=== PATIENT | female | born 2000 | race Caucasian/White ===

== ENCOUNTER 2020-05-18 08:00 | Outpatient (CLI) | payer SELFPAY | END 2020-05-18 23:59 | disposition home or self-care (01) | LOC: LAB.S 08:00 | PROVIDERS: ATTEND Nurse Practitioner | DX: M25.421 Effusion, right elbow (principal) | CPT/HCPCS: 81599; 87070; 87075; 87205 ==

== ENCOUNTER 2022-09-14 16:49 | Emergency (ER) | payer OTHER ==
[2022-09-14 17:20] LABS: BASOPHILS % (AUTO) 0.5 %; EOSINOPHILS # (AUTO) 0.1 10^3/uL (0.0-0.7); EOSINOPHILS % (AUTO) 0.8 %; HCT - HEMATOCRIT 38.3 % (37.0-47.0); HGB - HEMOGLOBIN 13.1 g/dL (12.0-16.0); LYMPHOCYTES % (AUTO) 26.7 %; MEAN CORPUSCULAR HEMOGLOBIN 30.5 pg (27.0-31.0); MEAN CORPUSCULAR HGB CONC 34.2 g/dL (32.0-36.0); MEAN CORPUSCULAR VOLUME 89.1 fL (81.0-99.0); MEAN PLATELET VOLUME 9.1 fL (7.9-10.8); MONOCYTES # (AUTO) 0.6 10^3/uL (0.0-1.0); MONOCYTES % (AUTO) 7.6 %; NEUTROPHILS # (AUTO) 4.7 10^3/uL (1.5-6.6); PLT - PLATELET COUNT 255 10^3/uL (130-450); RED CELL DISTRIBUTION WIDTH 12.6 % (12.0-15.0); WHITE BLOOD COUNT 7.3 x10^3/uL (4.8-10.8)
[2022-09-14 18:16] LABS: BILIRUBIN,URINE NEGATIVE (NEGATIVE); GLUCOSE, URINE (UA) NEGATIVE (NEGATIVE); KETONES,URINE (UA) NEGATIVE (NEGATIVE); LEUKOCYTE ESTERASE, URINE NEGATIVE (NEGATIVE); NITRITE,URINE NEGATIVE (NEGATIVE); OCCULT BLOOD,URINE NEGATIVE (NEGATIVE); PH,URINE 6.5 PH (5.0-7.5); PROTEIN,URINE NEGATIVE (NEGATIVE); UROBILINOGEN,URINE 0.2 (NORMAL) E.U./dL (NORMAL)
[2022-09-14 18:20] LABS: CLARITY,URINE CLEAR (CLEAR)
--- NOTE | 2022-09-14 19:33 | Ultrasound Report ---
PROCEDURE: OB First Trimester w/TV INDICATIONS: 6.5 weeks preg/pain/spotting OUTSIDE/PRIOR DATING DATA: Last menstrual period (LMP): 08/02/2022. LMP-based estimated date of delivery (WILLIE): 05/09/2023. TECHNIQUE: Real-time scanning was performed of the fetus and maternal pelvic organs, with image documentation. Endovaginal scanning was also performed to better visualize the fetus and maternal ovaries. COMPARISON: None FINDINGS: Embryo: Mean gestational sac diameter is 0.84 cm corresponding with 5 weeks 4 days. Heart rate: Not identified Measurement variability in dating: +/- 4 weeks by LMP, +/- 7 days by mean sac diameter (use before 6 weeks gestation if crown-rump length not able to be measured), +/- 5 days by crown-rump length (6-12 weeks gestation). Maternal organs: Ovaries demonstrate a right corpus luteal cyst. IMPRESSION: Intrauterine is seen with a gestational sac measuring 5 weeks 4 days, however there is no f etal pole and no heart rate. These findings are concerning for a nonviable . Recommend follow-up ultrasound. Reviewed by: Ollie Downing on 09/14/2022 7:32 PM PDT Approved by: Ollie Downing on 09/14/2022 7:32 PM PDT Station ID: [id number]
--- NOTE | 2022-09-14 19:40 | ED Physician Documentation ---
PD HPI FEMALE - Stated complaint Stated Complaint: SPOTTING - Chief complaint Chief Complaint: Abd Pain - History obtained from History obtained from: Patient - Additional information Additional information: Patient is a 22-year-old female with no prior pregnancies presenting for evaluation of vaginal bleeding and lower abdominal cramping that is been present for 2 days. She reports that the spotting seems heavier today but is not as much as a period. She is with her last menstrual cycle in July and believes she is approximately 6 weeks .Her OB is in [place] but she borrero s not yet had any visits.She denies concerns for sexually transmitted infections. Review of Systems Constitutional: denies: Fever Cardiac: denies: Chest pain / pressure Respiratory: denies: Dyspnea GI: denies: Vomiting : reports: Discharge (White), Vaginal bleeding. denies: Dysuria Musculoskeletal: denies: Back pain Neurologic: denies: Headache PD PAST MEDICAL HISTORY - Past Medical History Past Medical History: No Cardiovascular: None Respiratory: None Neuro: None Endocrine/Autoimmune: None GI: None CA[employer]: None : None HEENT: None Psych: None Musculoskeletal: None Derm: None Other Past Medical History: CLEFT PALATE/SURGERY.. - Past Surgical History Past Surgical History: Yes General: Cholecystectomy, Other - Present Medications Home Medications: Ambulatory Orders Medication Instructions Recorded Confirmed metroNIDAZOLE [Flagyl] 500 mg PO BID 7 Days #14 tablet 09/14/22 - Allergies Allergies/Adverse Reactions: Allergies Allergy/AdvReac Type Severity Reaction Status Date / Time No Known Drug Allergies Allergy Verified 09/14/22 16:54 - Social History Does the pt smoke?: No Smoking Status: Never smoker Does the pt drink ETOH?: No Does the pt have substance abuse?: No - Immunizations Immunizations are current?: Yes - POLST Patient has POLST: No PD ED PE NORMAL - General General: Alert and oriented X 3, No acute distress, Well developed/nourished - HEENT HEENT: Atraumatic - Neck Neck: Supple, no meningeal sign - Cardiac Cardiac: RRR, No murmur - Respiratory Respiratory: No respiratory distress, Clear bilaterally - Abdomen Abdomen: Soft, Non distended - Female Female : Pt declined - Derm Derm: Warm and dry - Extremities Extremities: No edema - Neuro Neuro: Normal speech Results - Vitals Vitals: Vital Signs - 24 hr 09/14/22 09/14/2209/14/23 16:52 17:22 19:54 Temperature 36.1 C L Heart Rate 70 81 75 Respiratory 16 18 15 Rate Blood Pressure 111/73 106/69 98/61 O2 Saturation 100 100 100 Oxygen O2 Source Room air - Labs Labs: Laboratory Tests 09/14/22 09/14/22 09/14/22 17:11 17:11 17:11 WBC 7.3 RBC 4.30 Hgb 13.1 Hct 38.3 MCV 89.1 MCH 30.5 MCHC 34.2 RDW 12.6 Plt Count 255 MPV 9.1 Neut # (Auto) 4.7 Lymph # (Auto) 2.0 Bryan # (Auto) 0.6 Eos # (Auto) 0.1 Baso # (Auto) 0.0 Absolute Nucleated RBC 0.00 Nucleated RBC % 0.0 HCG, Quant 74140.00 Urine Color Urine Clarity Urine pH Ur Specific [place] Urine Protein Urine Glucose (UA) Urine Ketones Urine Occult Blood Urine Nitrite Urine Bilirubin Urine Urobilinogen Ur Leukocyte Esterase Ur Microscopic Review Urine Culture Comments C. glabrata (PCR) C. krusei (PCR) Lucie species DNA T. vaginalis (PCR) Bact Vaginosis (PCR) Blood Type B POSITIVE Blood Type Recheck 09/14/22 09/14/22 09/14/22 18:00 18:04 18:21 WBC RBC Hgb Hct MCV MCH MCHC RDW Plt Count MPV Neut # (Auto) Lymph # (Auto) Bryan # (Auto) Eos # (Auto) Baso # (Auto) Absolute Nucleated RBC Nucleated RBC % HCG, Quant Urine Color STRAW Urine Clarity CLEAR Urine pH 6.5 Ur Specific [place] <=1.005 Urine Protein NEGATIVE Urine Glucose (UA) NEGATIVE Urine Ketones NEGATIVE Urine Occult Blood NEGATIVE Urine Nitrite NEGATIVE Urine Bilirubin NEGATIVE Urine Urobilinogen 0.2 (NORMAL) Ur Leukocyte Esterase NEGATIVE Ur Microscopic Review NOT INDICATED Urine Culture Comments NOT INDICATED C. glabrata (PCR) NEGATIVE C. krusei (PCR) NEGATIVE Lucie species DNA NEGATIVE T. vaginalis (PCR) NEGATIVE Bact Vaginosis (PCR) POSITIVE A Blood Type Blood Type Recheck B POSITIVE PD Medical Decision Making - ED course Complexity details: reviewed results, re-evaluated patient, d/w patient, d/w family (mother) ED course: Patient is a 22-year-old female with Vaginal bleeding in the setting of early . She has not yet had any care.Abdominal exam is benign. Patient declined pelvic exam and perform self swabs.CBC, hCG quant and blood type are reviewed. hCG quant is 10,000. Blood type is B+.Pelvic ultrasound was obtained which I reviewed and demonstrates signs of an IUP but there is no pole or cardiac activity. I did review these findings with the patient and family member at bedside and expressed that it could be related to early versus miscarriage Patient needs close follow-up with her OB.After discharge her vaginosis panel was positive for bacterial vaginosis. She had reported having white vaginal discharge so we will treat. Patient aware of need to picking supervisor antibiotics tomorrow at [facility] pharmacy and denies any further questions. Her urine is negative for infection. She is counseled on strict return precautions for worsening pain or bleeding. Departure - Departure Disposition: 01 Home, Self Care Clinical Impression: Threatened miscarriage, Bacterial vaginosis in Condition: Stable Instructions: ED Miscarriage Poss Prescriptions: metroNIDAZOLE [Flagyl] 500 mg PO BID 7 Days #14 tablet Comments: Your blood type is B+. Your hormone level called and hCG is 10,000. Your ultrasound shows that the is located inside the uterus which is where it is supposed to be. However they were not able to see some signs of the such as a heart rate yet.It could be that you are just too early in the for these findings. However it could also mean that you are having a miscarriage. I would recommend calling your OB tomorrow to arrange for close follow-up. He will likely need another ultrasound. Return to the emergency department if you have any worsening symptoms such as heavier bleeding where you are soaking through a pad an hour for a few hours or any new concerns. IMPRESSION: Intrauterine is seen with a gestational sac measuring 5 weeks 4 days, however there is no pole and no heart rate. These findings are concerning for a nonviable . Recommend follow-up ultrasound. Discharge Date/Time: 09/14/22 19:57
[2022-09-14 19:58] VITALS: BP 98/61
[2022-09-14 20:31] LABS: BACTERIAL VAGINOSIS DNA POSITIVE (NEGATIVE); CANDIDA GROUP DNA NEGATIVE (NEGATIVE); CANDIDA KRUSEI DNA NEGATIVE (NEGATIVE); TRICHOMONAS VAGINALIS DNA NEGATIVE (NEGATIVE)
[2022-09-14 20:32] LABS: CANDIDA GLABRATA DNA NEGATIVE (NEGATIVE)
[2022-09-15 01:00] LABS: CHLAMYDIA TRACHOMATIS DNA NEGATIVE (NEGATIVE)
[2022-09-15 01:01] LABS: NEISSERIA GONORRHOEAE DNA NEGATIVE (NEGATIVE)
== END 2022-09-14 19:57 | disposition home or self-care (01) ==
LOC: ED 16:49
DX: O20.0 Threatened abortion (principal); Z3A.01 Less than 8 weeks gestation of pregnancy; O23.591 Infection of other part of genital tract in pregnancy, first trimester; B96.89 Other specified bacterial agents as the cause of diseases classified elsewhere
CPT/HCPCS: 36415; 81001; 81003; 81514; 84702; 85025; 86900; 86901; 87086; 87491; 87591; 87661; 99283; 99284